=== PATIENT | female | born 1990 | race Caucasian/White ===

== ENCOUNTER 2021-03-13 08:30 | Inpatient (IN) | payer OTHER ==
[~2021-03-13] VITALS: Ht 157.5 cm; Wt 65.9 kg
[~2021-03-13 08:30] MED LIST: CRYSELLE-28 TA1 EACH PO
--- NOTE | 2021-03-13 12:30 | NUR ---
PT ADMITTED TO [facility]. AGREES WITH PLANNED SURGERY. LUNG SOUNDS CLEAR.
[2021-03-13 12:34] LABS: BASOPHILS ABSOLUTE AUTO 0.06 K/mm3 (0.00-0.23); BASOPHILS PERCENT AUTO 1 % (0-2); EOSINOPHILS ABSOLUTE AUTO 0.05 K/mm3 (0.00-0.68); EOSINOPHILS PERCENT AUTO 1 % (0-6); Hematocrit 28.9 % (33.0-51.0); IMMATURE GRAN ABSOLUTE AUTO 0.01 K/mm3 (0.00-0.10); IMMATURE GRAN PERCENT AUTO 0 % (0-1); LYMPHOCYTES ABSOLUTE AUTO 0.93 K/mm3 (0.84-5.20); LYMPHOCYTES PERCENT AUTO 17 % (21-46); MONOCYTES ABSOLUTE AUTO 0.37 K/mm3 (0.16-1.47); MONOCYTES PERCENT AUTO 7 % (4-13); Mean Corpuscular HGB 22.2 pg (26.0-34.0); Mean Corpuscular HGB Conc 27.7 g/dL (31.5-36.5); Mean Corpuscular Volume 80 fL (80-100); Mean Platelet Volume 10.2 fL (9.1-12.4); NEUTROPHILS ABSOLUTE AUTO 4.22 K/mm3 (1.96-9.15); NEUTROPHILS PERCENT AUTO 75 % (41-73); Platelet Count 436 K/mm3 (150-400); RDW Coefficient Variation 14.4 % (11.7-14.2); Red Blood Cell Count 3.61 M/mm3 (3.80-5.20); White Blood Cell Count 5.64 K/mm3 (4.00-11.30)
[2021-03-13 12:45] LABS: Anion Gap 6 mmol/L (6-16); Blood Urea Nitrogen 7 mg/dL (8-24); Bun/Creatinine Ratio 16.4 (12.0-20.0); CO2, Blood 24 mmol/L (21-32); Calcium, Blood 9.2 mg/dL (8.5-10.1); Chloride, Blood 110 mmol/L (98-108); Creatinine, Blood 0.43 mg/dL (0.40-1.00); Glomerular Filtration Rate >60 (60-); Glucose, Blood 90 mg/dL (70-99); Potassium, Blood 3.8 mmol/L (3.5-5.5); Sodium, Blood 140 mmol/L (136-145)
--- NOTE | 2021-03-13 13:55 | NUR ---
03/13/21 1357 Alber Rosario ROTH CATHETER PLACED BY MALIHA AFTER VAGINAL PREP IN THE OR
--- NOTE | 2021-03-13 16:10 | NUR ---
RECIEVED PATIENT AND REPORT. PLACED ON O2. VERBAL ORDERS GIVEN FROM DR SYKES TO RN, ORDERS ENTERED NOTIFIED LAB TO COME DRAW PATIENT . HEART CENTER STAFF HERE TIMES 4 JUST PR4IOR TO PATIENT BEING BROUGHT TO PACU. PATIENT STABLE ROTH CATHETER IN PLACE AND UTERUS CATHETER IN PLACE TO PREVENT BLEEDING. IV OPENED UP TO GIVE FLUIDS AND KEEP BLOOD PREASURE UP. PATIENT STABILIZED AND NEW VERBAL ORDER TO TAKE PATIENT TO [facility] PRIOR TO LABS BEING DRAWN BY DR SYKES. HEART CENTER STAFF AND RN TRANSFERED PATIENT TO [facility] VSS, NO INCREASE IN BLEEDING TWO DOSES OF 25MG FENTANYL GIVEN TO PATIENT PRIOR TO TRANSFER. AND DURING TRANSFER.
[2021-03-13 16:15] LABS: BASOPHILS ABSOLUTE AUTO 0.07 K/mm3 (0.00-0.23); BASOPHILS PERCENT AUTO 0 % (0-2); EOSINOPHILS ABSOLUTE AUTO 0.02 K/mm3 (0.00-0.68); EOSINOPHILS PERCENT AUTO 0 % (0-6); IMMATURE GRAN PERCENT AUTO 1 % (0-1); LYMPHOCYTES ABSOLUTE AUTO 0.82 K/mm3 (0.84-5.20); LYMPHOCYTES PERCENT AUTO 3 % (21-46); MONOCYTES PERCENT AUTO 2 % (4-13); Mean Corpuscular HGB 23.4 pg (26.0-34.0); Mean Corpuscular HGB Conc 28.7 g/dL (31.5-36.5); Mean Corpuscular Volume 82 fL (80-100); Mean Platelet Volume 9.7 fL (9.1-12.4); NEUTROPHILS ABSOLUTE AUTO 24.11 K/mm3 (1.96-9.15); NEUTROPHILS PERCENT AUTO 94 % (41-73); NRBC ABSOLUTE 0.02 K/mm3 (0.00-0.02); NRBC Auto 0.1 /100 WBC (0.0-0.2); Platelet Count 308 K/mm3 (150-400); RDW Coefficient Variation 14.5 % (11.7-14.2); RDW Standard Deviation 42.4 fL (35.1-46.3); Red Blood Cell Count 1.84 M/mm3 (3.80-5.20); White Blood Cell Count 25.72 K/mm3 (4.00-11.30)
[2021-03-13 16:19] LABS: Hemoglobin 4.3 g/dL (11.5-16.0)
[2021-03-13 18:07] LABS: BASOPHILS ABSOLUTE AUTO 0.05 K/mm3 (0.00-0.23); BASOPHILS PERCENT AUTO 0 % (0-2); EOSINOPHILS ABSOLUTE AUTO 0.01 K/mm3 (0.00-0.68); EOSINOPHILS PERCENT AUTO 0 % (0-6); Hematocrit 21.4 % (33.0-51.0); Hemoglobin 6.9 g/dL (11.5-16.0); IMMATURE GRAN ABSOLUTE AUTO 0.09 K/mm3 (0.00-0.10); IMMATURE GRAN PERCENT AUTO 1 % (0-1); LYMPHOCYTES ABSOLUTE AUTO 0.61 K/mm3 (0.84-5.20); LYMPHOCYTES PERCENT AUTO 3 % (21-46); MONOCYTES ABSOLUTE AUTO 1.56 K/mm3 (0.16-1.47); MONOCYTES PERCENT AUTO 8 % (4-13); Mean Corpuscular HGB 26.4 pg (26.0-34.0); Mean Corpuscular HGB Conc 32.2 g/dL (31.5-36.5); Mean Corpuscular Volume 82 fL (80-100); Mean Platelet Volume 9.6 fL (9.1-12.4); NEUTROPHILS ABSOLUTE AUTO 17.29 K/mm3 (1.96-9.15); NEUTROPHILS PERCENT AUTO 88 % (41-73); NRBC ABSOLUTE 0.04 K/mm3 (0.00-0.02); NRBC Auto 0.2 /100 WBC (0.0-0.2); Platelet Count 236 K/mm3 (150-400); RDW Standard Deviation 41.4 fL (35.1-46.3); Red Blood Cell Count 2.61 M/mm3 (3.80-5.20); White Blood Cell Count 19.61 K/mm3 (4.00-11.30)
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
[2021-03-13 18:25] LABS: International Normalized Ratio 1.27; Prothrombin Time Results 13.1 Sec (9.7-11.5)
[2021-03-13 18:31] LABS: Anion Gap 7 mmol/L (6-16); Blood Urea Nitrogen 8 mg/dL (8-24); Bun/Creatinine Ratio 15.9 (12.0-20.0); CO2, Blood 21 mmol/L (21-32); Chloride, Blood 114 mmol/L (98-108); Glomerular Filtration Rate >60 (60-); Glucose, Blood 151 mg/dL (70-99); Sodium, Blood 142 mmol/L (136-145)
[2021-03-13 18:32] LABS: Calcium, Blood 6.6 mg/dL (8.5-10.1)
--- NOTE | 2021-03-13 21:33 | NUR ---
ASSUMED CARE FROM TERI MILLS. PT WAS RECEIVING HER 4TH UNIT OF PRBC'S DURING OUR BEDSIDE REPORT. PT AWAKENS TO VOICE, PALE APPEARING, LIPS DRY, ABDOMEN TENDER WHILE AUSCULTATING AND PALPATING. INCISION SITE C/D/I NO EVIDENCE OF BLEEDING NOTED, ROTH PATENT DRAINING ROJELIO RETURN, VAGINAL ROTH FOR TAMPO- NADE INTACT WITH RED RETURN, PT COMPLAINS OF FULLNESS, FEELING LIKE SHE NEEDS TO VOID. CALLS TO CHECK IN ON PATIENT, UPDATE GIVEN. OK TO GIVE HER ICE CHIPS/POPSICLE. PT GIVEN ICE CHIPS AND CHAPSTICK. HER COLOR RETURNING I CARE FOR HER. PT MORE ALERT, ENGAGING. UNIT OF BLOOD FINISHED, LINE FLUSHED, LABS DRAWN FOR 2130 BLOOD DRAW. PT DOZING.
[2021-03-13 21:45] LABS: BASOPHILS ABSOLUTE AUTO 0.02 K/mm3 (0.00-0.23); BASOPHILS PERCENT AUTO 0 % (0-2); EOSINOPHILS PERCENT AUTO 0 % (0-6); Hematocrit 26.5 % (33.0-51.0); IMMATURE GRAN PERCENT AUTO 1 % (0-1); LYMPHOCYTES PERCENT AUTO 3 % (21-46); MONOCYTES ABSOLUTE AUTO 1.33 K/mm3 (0.16-1.47); MONOCYTES PERCENT AUTO 7 % (4-13); Mean Corpuscular HGB 27.6 pg (26.0-34.0); Mean Corpuscular Volume 81 fL (80-100); Mean Platelet Volume 9.4 fL (9.1-12.4); NEUTROPHILS ABSOLUTE AUTO 17.46 K/mm3 (1.96-9.15); NEUTROPHILS PERCENT AUTO 90 % (41-73); NRBC ABSOLUTE 0.03 K/mm3 (0.00-0.02); NRBC Auto 0.2 /100 WBC (0.0-0.2); Platelet Count 151 K/mm3 (150-400); RDW Coefficient Variation 13.7 % (11.7-14.2); RDW Standard Deviation 40.9 fL (35.1-46.3); Red Blood Cell Count 3.26 M/mm3 (3.80-5.20); White Blood Cell Count 19.41 K/mm3 (4.00-11.30)
[2021-03-13 21:52] LABS: International Normalized Ratio 1.14; Prothrombin Time Results 11.9 Sec (9.7-11.5)
--- NOTE | 2021-03-14 00:32 | NUR ---
PT CONT TO C/O INCISIONAL PAIN, SHE IS BEING ASSISTED WITH TURNS Q2, ROTH WITH ROJELIO RETURN, VAGINAL ROTH WITH RED LIQUID RETURN. ABDOMEN REMAINS TENDER, WITHOUT EVIDENCE OF BLEEDING. DRESSING D/I. SIPPING WATER AND ICE CHIPS WITHOUT N/V.
[2021-03-14 01:39] LABS: BASOPHILS ABSOLUTE AUTO 0.01 K/mm3 (0.00-0.23); BASOPHILS PERCENT AUTO 0 % (0-2); EOSINOPHILS PERCENT AUTO 0 % (0-6); Hematocrit 24.1 % (33.0-51.0); Hemoglobin 8.2 g/dL (11.5-16.0); IMMATURE GRAN ABSOLUTE AUTO 0.05 K/mm3 (0.00-0.10); IMMATURE GRAN PERCENT AUTO 0 % (0-1); LYMPHOCYTES ABSOLUTE AUTO 0.93 K/mm3 (0.84-5.20); LYMPHOCYTES PERCENT AUTO 5 % (21-46); MONOCYTES ABSOLUTE AUTO 1.66 K/mm3 (0.16-1.47); MONOCYTES PERCENT AUTO 9 % (4-13); Mean Corpuscular HGB 27.3 pg (26.0-34.0); Mean Corpuscular Volume 80 fL (80-100); Mean Platelet Volume 10.3 fL (9.1-12.4); NEUTROPHILS PERCENT AUTO 85 % (41-73); NRBC ABSOLUTE 0.02 K/mm3 (0.00-0.02); NRBC Auto 0.1 /100 WBC (0.0-0.2); Platelet Count 156 K/mm3 (150-400); RDW Coefficient Variation 13.8 % (11.7-14.2); RDW Standard Deviation 40.3 fL (35.1-46.3); White Blood Cell Count 18.05 K/mm3 (4.00-11.30)
[2021-03-14 02:04] LABS: International Normalized Ratio 1.09; Prothrombin Time Results 11.4 Sec (9.7-11.5)
--- NOTE | 2021-03-14 04:47 | NUR ---
0400 ASSESSMENT REMAINED UNCHANGED, DR. CALVO CALLED TO CHECK IN ON PATIENT, ORDERS RECEIVED FOR REMOVAL OF THE UTERINE ROTH, CHANGE AM LABS FROM 0530 TO 0800, SLOWLY ADVANCE DIET, AND IF BLEEDING REMAINS UNDER CONTROL THEN MAY BE STATUS CHANGED. THE UTERINE ROTH HAD 50ML OF SALINE REMOVED, SLOW STEADY CONTROLLED REMOVAL, PT STATED IMPROVEMENT IN FEELING OF FULLNESS. 200ML OF RED LIQUID COUNTED IN RETURN BAG. PT THEN MEDICATED AND LOG ROLLED TO CLEAR DIRTY LINENS. PT TOLERATED WELL. KAYLAN PAD PLACED WITH INSTRUCTIONS TO CALL FOR ANY FEELING OF HEAVY BLEEDING. PT CONTINUES TO TOLERATE ICE WATER WITH NO N/V. ORAL PAIN MEDICATIONS ALSO ORDERED.
--- NOTE | 2021-03-14 05:45 | NUR ---
LONI HAS IMPROVED T/O THE NIGHT. HER UTERINE ROTH HAS BEEN REMOVED, SHE HAD ABOUT 700ML OUT OF HER URINARY CATHETER, IS TAKING IN WATER WITHOUT INCIDENT, HAS KAYLAN PAD IN PLACE. BUTTOCKS WITH SOME DEPENDENT EDEMA, LOW ABDOMEN IS SOFT AND TENDER TO PALPATION. PT STATES IMPROVEMENT IN HER SYMPTOMS SINCE THE NIGHT BEGAN. CONTINUED PATIENT TEACHING FOR POST OP EXPECTATIONS. ENCOURAGED TO MOVE HER ARMS AND LEGS OFTEN AND TO BEGIN WALKING EVEN SHORT DISTANCES WHEN ABLE. REMINDED TO TAKE IN FLUIDS AND THAT OFTEN TIMES SWELLING IN THE HANDS/FEET ARE COMMON AFTER BEING IN THE ICU WITH THE FLUID REPLACEMENT SHE HAS HAD. DRESSING CONT TO BE C/D/I.
--- NOTE | 2021-03-14 06:39 | NUR ---
LONI REPORTED THAT HER CRAMPING IS UP TO A 5/10, ORAL PAIN MEDS GIVEN PER MAR WITH APPLESAUCE. KAYLAN PAD CHECKED WITH MINIMAL RETURN. PT ENCOURAGED.
--- NOTE | 2021-03-14 07:32 | NUR ---
patient alert and oriented, makes needs known, call light with in reach, denies needing more pain meds for cramping abd pain, denies incontinence or saturated pads, no distress, wctm
[2021-03-14 08:21] LABS: BASOPHILS ABSOLUTE AUTO 0.05 K/mm3 (0.00-0.23); BASOPHILS PERCENT AUTO 0 % (0-2); EOSINOPHILS PERCENT AUTO 0 % (0-6); Hematocrit 22.5 % (33.0-51.0); Hemoglobin 7.6 g/dL (11.5-16.0); IMMATURE GRAN ABSOLUTE AUTO 0.07 K/mm3 (0.00-0.10); IMMATURE GRAN PERCENT AUTO 1 % (0-1); LYMPHOCYTES ABSOLUTE AUTO 1.24 K/mm3 (0.84-5.20); LYMPHOCYTES PERCENT AUTO 8 % (21-46); MONOCYTES ABSOLUTE AUTO 1.51 K/mm3 (0.16-1.47); MONOCYTES PERCENT AUTO 10 % (4-13); Mean Corpuscular HGB 27.2 pg (26.0-34.0); Mean Corpuscular HGB Conc 33.8 g/dL (31.5-36.5); Mean Corpuscular Volume 81 fL (80-100); Mean Platelet Volume 9.7 fL (9.1-12.4); NEUTROPHILS ABSOLUTE AUTO 11.86 K/mm3 (1.96-9.15); NEUTROPHILS PERCENT AUTO 81 % (41-73); NRBC ABSOLUTE 0.02 K/mm3 (0.00-0.02); NRBC Auto 0.1 /100 WBC (0.0-0.2); Platelet Count 168 K/mm3 (150-400); RDW Coefficient Variation 14.2 % (11.7-14.2); RDW Standard Deviation 41.5 fL (35.1-46.3); Red Blood Cell Count 2.79 M/mm3 (3.80-5.20); White Blood Cell Count 14.73 K/mm3 (4.00-11.30)
[2021-03-14 08:36] LABS: International Normalized Ratio 1.09; Prothrombin Time Results 11.4 Sec (9.7-11.5)
--- NOTE | 2021-03-14 08:54 | NUR ---
DR FIORE ROUNDED, REPORTED NEW HEMOGLOBIN OF 7.3, SCANT BLOOD ON PERIPADS, CRAMPING PAIN INCREASED, PATIENT REPORTING PERCOCET X1 IS HELPING COVER THE PAIN, NO NEW ORDERS
--- NOTE | 2021-03-14 13:34 | NUR ---
Update to Dr. Lemus: Received call from Dr. Lemus at this time r/t several respirations in the 30's charted in the patient's VS. Informed Dr. Lemus that these respirations were inaccurate readings crossed over from the monitor. Patient's true respirations 12-15, all VSS. No signs/symptoms of active bleeding. Patient alert and oriented x4. C/o mild-moderate ABD cramping pain effectively managed with prn pain medications.
[2021-03-14 14:09] LABS: Hematocrit 21.8 % (33.0-51.0); Hemoglobin 7.3 g/dL (11.5-16.0)
--- NOTE | 2021-03-14 14:58 | NUR ---
1415 report to christopher certified surgical first assistant for patient transfer to 219, patient transfered to 219, patient alert and oriented x4, makes needs known, so with patient, condition stable, lucas pad changed.
--- NOTE | 2021-03-14 16:32 | NUR ---
PT ARRIVED TO THE ROOM AT APPROXIMATELY 1430. PT ALERT AND ORIENTED. PAIN MANAGED WILL CONTINUE TO MONITOR.
--- NOTE | 2021-03-14 16:34 | NUR ---
REPORT GIVEN TO OBED WILLIAMSON. NO CHANGE IS PT STATUS SINCE SHE ARRIVED TO THE UNIT.
--- NOTE | 2021-03-14 18:26 | NUR ---
SHIFT SUMMARY PT TRANSFERRED FROM ICU. SHE IS CURRENTLY RESTING IN BED WITH HER CALL LIGHT IN REACH. MEDICATED FOR PAIN AND ENCOURAGED TO GET UP ONCE PAIN SUBSIDES. WILL PULL ROTH ONCE PATIENT IS ABLE TO STAND. VSS. WILL REPORT TO ASMITA WILLIAMSON.
--- NOTE | 2021-03-15 00:35 | NUR ---
PT IN BED AT THIS TIME WHERE SHE REMAINS MUCH OF THE NIGHT AND IS RESTING QUIETLY IN STABLE CONDITION. MEDICATED FOR PAIN INDICATED WITH POSITIVE EFFECT, ASSISTED WITH CARE AND ADLS. ENCOURAGED TO CALL FOR HELP WHEN ASSISTANCE IS NEEDED SHE IS MONITORED. CALL ALEJANDRO PROVIDED TO HER.
[2021-03-15 08:12] LABS: BASOPHILS ABSOLUTE AUTO 0.05 K/mm3 (0.00-0.23); BASOPHILS PERCENT AUTO 0 % (0-2); EOSINOPHILS ABSOLUTE AUTO 0.04 K/mm3 (0.00-0.68); EOSINOPHILS PERCENT AUTO 0 % (0-6); Hematocrit 18.8 % (33.0-51.0); Hemoglobin 6.2 g/dL (11.5-16.0); IMMATURE GRAN ABSOLUTE AUTO 0.07 K/mm3 (0.00-0.10); IMMATURE GRAN PERCENT AUTO 1 % (0-1); LYMPHOCYTES ABSOLUTE AUTO 1.41 K/mm3 (0.84-5.20); LYMPHOCYTES PERCENT AUTO 13 % (21-46); MONOCYTES ABSOLUTE AUTO 1.05 K/mm3 (0.16-1.47); MONOCYTES PERCENT AUTO 9 % (4-13); Mean Corpuscular HGB 27.4 pg (26.0-34.0); Mean Corpuscular Volume 83 fL (80-100); Mean Platelet Volume 9.7 fL (9.1-12.4); NEUTROPHILS ABSOLUTE AUTO 8.54 K/mm3 (1.96-9.15); NEUTROPHILS PERCENT AUTO 77 % (41-73); NRBC ABSOLUTE 0.03 K/mm3 (0.00-0.02); NRBC Auto 0.3 /100 WBC (0.0-0.2); Platelet Count 191 K/mm3 (150-400); RDW Coefficient Variation 14.8 % (11.7-14.2); RDW Standard Deviation 44.1 fL (35.1-46.3); Red Blood Cell Count 2.26 M/mm3 (3.80-5.20); White Blood Cell Count 11.16 K/mm3 (4.00-11.30)
[2021-03-15 09:13] LABS: Anion Gap 5 mmol/L (6-16); Blood Urea Nitrogen 3 mg/dL (8-24); Bun/Creatinine Ratio 7.2 (12.0-20.0); CO2, Blood 26 mmol/L (21-32); Calcium, Blood 7.8 mg/dL (8.5-10.1); Chloride, Blood 111 mmol/L (98-108); Creatinine, Blood 0.42 mg/dL (0.40-1.00); Glomerular Filtration Rate >60 (60-); Glucose, Blood 95 mg/dL (70-99); Potassium, Blood 3.5 mmol/L (3.5-5.5); Sodium, Blood 142 mmol/L (136-145)
--- NOTE | 2021-03-15 09:29 | NUR ---
PLEASE IGNORE ADMISSION ASSESSMENT I ACCIDENTALLY ENTERED AT 0800 TODAY, I DID NOT ADMIT THE PATIENT, I MEANT TO ENTER SHIFT ASSESSMENT.
--- NOTE | 2021-03-15 11:56 | NUR ---
[id number] TELEPHONE ORDER RECEIVED FROM DR. Raj CALVO TO GIVE PATIENT IBUPROFEN 600 MG PO Q 6 HRS PRN FOR MILD PAIN, GIVE IT INTERMITTENTLY WITH PERCOCET & TREAT PAIN AGRESSIVELY. STAT CBC WAS ALSO ORDERED ALONG WITH IT.
--- NOTE | 2021-03-15 12:48 | NUR ---
ORDER FOR [address] BARRAGAN WELL HOSPITALIST CONSULT. DR CARR NOTIFIED.
--- NOTE | 2021-03-15 17:35 | NUR ---
SHIFT SUMMARY: PATIENT' ROTH CATHETER REMOVED BEFORE 0800 TODAY, PT. STARTED WALKING TO THE BATHROOM ON SBA X 1 WITHOUT PROBLEM, NOTED GETTING BETTER WITH AMBULATION TIME GOES BY, VERY GOOD AMOUNT OF URINE OUTPUT THROUGHOUT THE DAY, ATE MOSTLY ALMOST HALF OF HER MEALS, HGB DROPPED FROM 7.3 YESTERDAY TO 6.2 TODAY, BLOOD TRANSFUSION ORDER OF 1 UNIT PRBC WAS CANCELLED BY DR. Raj CALVO, PAIN IS WELL CONTROLLED THROUGHOUT THE DAY WITH INTERMITTENT COVERAGE OF IBUPROFEN & PERCOCET PER MD ORDER. MINIMAL AMOUNT OF SEROUS DISCHARGE TO PAD NOTED. TRANSVERSE INCISION TO LOWER ABDOMEN WITH SUTURES & STERI STRIPS ARE DRY & INTACT.
[2021-03-16 04:06] LABS: BASOPHILS ABSOLUTE AUTO 0.06 K/mm3 (0.00-0.23); BASOPHILS PERCENT AUTO 1 % (0-2); EOSINOPHILS ABSOLUTE AUTO 0.15 K/mm3 (0.00-0.68); EOSINOPHILS PERCENT AUTO 2 % (0-6); Hematocrit 21.9 % (33.0-51.0); Hemoglobin 6.9 g/dL (11.5-16.0); IMMATURE GRAN ABSOLUTE AUTO 0.14 K/mm3 (0.00-0.10); IMMATURE GRAN PERCENT AUTO 1 % (0-1); LYMPHOCYTES ABSOLUTE AUTO 1.93 K/mm3 (0.84-5.20); LYMPHOCYTES PERCENT AUTO 20 % (21-46); MONOCYTES ABSOLUTE AUTO 0.88 K/mm3 (0.16-1.47); MONOCYTES PERCENT AUTO 9 % (4-13); Mean Corpuscular HGB 27.1 pg (26.0-34.0); Mean Corpuscular HGB Conc 31.5 g/dL (31.5-36.5); Mean Corpuscular Volume 86 fL (80-100); Mean Platelet Volume 9.8 fL (9.1-12.4); NEUTROPHILS ABSOLUTE AUTO 6.52 K/mm3 (1.96-9.15); NEUTROPHILS PERCENT AUTO 68 % (41-73); NRBC ABSOLUTE 0.13 K/mm3 (0.00-0.02); NRBC Auto 1.3 /100 WBC (0.0-0.2); Platelet Count 266 K/mm3 (150-400); RDW Standard Deviation 45.7 fL (35.1-46.3); Red Blood Cell Count 2.55 M/mm3 (3.80-5.20); White Blood Cell Count 9.68 K/mm3 (4.00-11.30)
--- NOTE | 2021-03-16 05:55 | NUR ---
Pt is in bed at this time where she remains much of the night and is resting comfortably. Has reported lower abdominal pain and medicated accordingly, no other complaints. She is alert, awake, and oriented, assisted with care, ADLS, and bathroom needs. No vaginal bleeding noted or reported. Her call light was given to her and was reminded to call for help when assistance is needed as she is monitored.
[2021-03-16] MEDS ORDERED: DOCU100 PO (13:23)
--- NOTE | 2021-03-16 18:19 | NUR ---
181 DISCHARGED PT. ON A WHEELCHAIR, AOX3, DISCHARGE INSTRUCTIONS GIVEN, PT. VERBALIZED UNDERSTANDING, LOWE ABDOMEN TRANSVERSE INCISION WITH SUTURES & STERI STIPR DRY & INTACT, IV ACCESS REMOVED.
== END 2021-03-16 18:15 | disposition home or self-care (01) | DRG 742 ==
LOC: PRE IP 08:30 → ICUE 11:31 → SURS 11:31 → PRE IP 13:00 → ICUE 16:53 → SURS 03-14 15:05
PROVIDERS: Anesthesiology; Internal Medicine; ADMIT Obstetrics & Gynecology
PROC: 04LF3DU Occlusion of Left Uterine Artery with Intraluminal Device, Percutaneous Approach (ICD-10-PCS; 2021-03-13)
PROC: 04LE3DT Occlusion of Right Uterine Artery with Intraluminal Device, Percutaneous Approach (ICD-10-PCS; 2021-03-13)
PROC: 30233N1 Transfusion of Nonautologous Red Blood Cells into Peripheral Vein, Percutaneous Approach (ICD-10-PCS; 2021-03-13)
PROC: 3E033XZ Introduction of Vasopressor into Peripheral Vein, Percutaneous Approach (ICD-10-PCS; 2021-03-13)
PROC: 0UB90ZZ Excision of Uterus, Open Approach (ICD-10-PCS; principal; 2021-03-13 13:00)
DX: D25.9 Leiomyoma of uterus, unspecified (principal); R57.8 Other shock; Z79.899 Other long term (current) drug therapy; E83.51 Hypocalcemia; F17.210 Nicotine dependence, cigarettes, uncomplicated; Z88.8 Allergy status to other drugs, medicaments and biological substances; D64.9 Anemia, unspecified
CPT/HCPCS: 36246; 36415; 36430; 37244; 75736; 75774; 76937; 80048; 82330; 84703; 85014; 85018; 85025; 85384; 85610; 85730; 86850; 86900; 86901; 86923; 88305; 99152; 99153; A9270; C1725; C1769; C1887; C1894; J0610; J0690; J1100; J1644; J1885; J2250; J2405; J2704; J2916; J3010; J7030; J7040; J7050; J7120; P9016; P9059; Q9967

== ENCOUNTER 2023-05-16 11:34 | Emergency (ER) | payer OTHER ==
[~2023-05-16] VITALS: Ht 157.5 cm; Wt 63.5 kg
[~2023-05-16 11:34] MED LIST changes: +DOCU100 PO
[2023-05-16 12:23] VITALS: BP 136/95
[2023-05-16] MEDS ORDERED: NS 1,000 ML IV SCH (12:30)
[2023-05-16 12:48] LABS: BASOPHILS ABSOLUTE AUTO 0.03 K/mm3 (0.00-0.23); BASOPHILS PERCENT AUTO 0 % (0-2); EOSINOPHILS ABSOLUTE AUTO 0.01 K/mm3 (0.00-0.68); EOSINOPHILS PERCENT AUTO 0 % (0-6); Hematocrit 41.4 % (33.0-51.0); Hemoglobin 14.3 g/dL (11.5-16.0); IMMATURE GRAN ABSOLUTE AUTO 0.03 K/mm3 (0.00-0.10); IMMATURE GRAN PERCENT AUTO 0 % (0-1); LYMPHOCYTES ABSOLUTE AUTO 1.25 K/mm3 (0.84-5.20); LYMPHOCYTES PERCENT AUTO 15 % (21-46); MONOCYTES ABSOLUTE AUTO 0.55 K/mm3 (0.16-1.47); MONOCYTES PERCENT AUTO 7 % (4-13); Mean Corpuscular HGB 32.7 pg (26.0-34.0); Mean Corpuscular HGB Conc 34.5 g/dL (31.5-36.5); Mean Corpuscular Volume 95 fL (80-100); Mean Platelet Volume 9.6 fL (9.1-12.4); NEUTROPHILS PERCENT AUTO 77 % (41-73); Platelet Count 287 K/mm3 (150-400); RDW Coefficient Variation 12.6 % (11.7-14.2); RDW Standard Deviation 43.9 fL (35.1-46.3); Red Blood Cell Count 4.37 M/mm3 (3.80-5.20); White Blood Cell Count 8.27 K/mm3 (4.00-11.30)
[2023-05-16 13:38] LABS: Albumin, Blood 3.7 g/dL (3.4-5.0); Bilirubin, Total 0.8 mg/dL (0.1-1.0); Bun/Creatinine Ratio 14.5 (12.0-20.0); Creatinine, Blood 0.48 mg/dL (0.40-1.00); Globulin, Blood 3.8 g/dL (2.2-4.0); Potassium, Blood 3.8 mmol/L (3.5-5.5); Total Protein, Blood 7.5 g/dL (6.4-8.2)
[2023-05-16] MEDS ORDERED: Ondansetron HCl 2 MG / ML 2ML Vial IV ONE (13:45)
[2023-05-16] MEDS ORDERED: ONDA4ODT MM (13:56)
== END 2023-05-16 14:09 | disposition home or self-care (01) ==
LOC: ER 11:34
PROVIDERS: Student in an Organized Health Care Education/Training Program
DX: O21.9 Vomiting of pregnancy, unspecified (principal); Z3A.08 8 weeks gestation of pregnancy; Z87.891 Personal history of nicotine dependence
CPT/HCPCS: 80053; 84702; 85025; 96361; 96374; 99284-25; J2405; J7030

== ENCOUNTER → 2024-01-06 | Outpatient (CLI) | payer OTHER ==
[~2024-01-06] MED LIST changes: +IBUP800 PO; +ONDA4ODT MM; +PRENATAL TABLE1 EAC2 PO; +Percocet 5-3251 EACH PO; +TOCO1000 PO
== END ==
LOC: LAB SHORT 15:20 → LAB 15:20
DX: D22.22 Melanocytic nevi of left ear and external auricular canal (principal); D48.5 Neoplasm of uncertain behavior of skin
CPT/HCPCS: 88305